=== PATIENT | male | born 1965 | race Caucasian/White ===

== ENCOUNTER 2023-03-22 06:01 | Day surgery (SDC) | payer BC ==
[2023-03-21 13:53] VITALS: BMI 36.6
[2023-03-22] MEDS ORDERED: PROPOFOL 200 MG/20 ML VIAL ONE (07:34)
[2023-03-22] MEDS ORDERED: Lidocaine 1% PF 5 ML VIAL ONE (07:34)
== END 2023-03-22 09:17 | disposition home or self-care (01) ==
LOC: SDC 06:01
PROVIDERS: ATTEND Internal Medicine Cardiovascular Disease
PROC: 5A2204Z Restoration of Cardiac Rhythm, Single (ICD-10-PCS; principal; 2023-03-22)
DX: I48.19 Other persistent atrial fibrillation (principal); I10 Essential (primary) hypertension; I25.10 Atherosclerotic heart disease of native coronary artery without angina pectoris; Q23.1 Congenital insufficiency of aortic valve; Z92.89 Personal history of other medical treatment; Z79.899 Other long term (current) drug therapy
CPT/HCPCS: 92960; 93005; 93010; J2704